=== PATIENT | male | born 1980 | race Caucasian/White ===

== ENCOUNTER 2022-01-22 17:21 | Emergency (ER) | payer OTHER, SELFPAY ==
--- NOTE | ~2022-01-22 | XR_ITS ---
EXAM: XR ankle LT min 3V DATE: 01/22/2022 17:53 HISTORY: pain to left ankle lateral aspect. x2 months . COMPARISON: None available. FINDINGS: Normal mineralization. No fracture or dislocation. No lytic or blastic lesion. Degenerativ e tibiotalar and midfoot changes. No erosion or periosteal change. Soft tissues within normal limits. IMPRESSION: No acute osseous finding in the left ankle. Reviewed, dictated and finalized at location K.
[2022-01-22 17:35] VITALS: BP 159/88; PULSE 79; RESP 16; TEMP 36.3; O2SAT 98
--- NOTE | 2022-01-22 17:55 | ED.LOWEXIN ---
HPI - Extremity Injury (Lower) General Chief Complaint: Extremity Injury, Lower Stated Complaint: injury to left foot and ankle area Time Seen by Provider: 01/22/22 17:35 Source: patient and RN notes reviewed History of Present Illness HPI Narrative: Patient is a 41-year-old male who presents the urgent care with complaints of left ankle pain. Patient states its been intermittent since November when he rolled it playing softball. Denies of taking anything [id number] recently for his pain. No other acute complaints. No acute distress noted. Patient aware of the plan of care. Some parts of this dictation were generated by voice recognition software and may contain typographical and/or grammatical inaccuracies. Related Data Home Medications Medication Instructions Recorded Confirmed cetirizine 10 mg tablet 10 mg PO DAILY 01/22/22 01/22/22 metformin 500 mg tablet,extended 500 mg PO DAILY 01/22/22 01/22/22 release 24 hr omeprazole 20 mg capsule,delayed 20 mg PO DAILY 01/22/22 01/22/22 release Allergies Allergy/AdvReac Type Severity Reaction Status Date / Time No Known Allergies Allergy Verified 01/22/22 17:47 Review of Systems Review of Systems: CONSTITUTIONAL: Denies fever, chills, or sweats. EYES: Denies visual changes, redness, or discharge. ENT: Denies rhinorrhea, congestion, sore throat, or otalgia. CARDIOVASCULAR: Denies chest pain, palpitations, or edema. RESPIRATORY: Denies cough or dyspnea. GASTROINTESTINAL: Denies abdominal pain, nausea, vomiting, or diarrhea. GENITOURINARY: Denies dysuria or hematuria. SKIN: Denies rash or itching. MUSCULOSKELETAL: Reports of left ankle pain NEUROLOGIC: Denies headache, numbness, or weakness. All other systems reviewed are negative, except as documented in HPI. PMFSH Comments At the time of my signature, I reviewed and agree with the nursing past medical, surgical, social, and family history. There is no relevant family history pertinent to the patient complaint. Exam Narrative: GENERAL: This is a well-nourished, well-developed patient, in no apparent distress. HEAD: normocephalic, atraumatic. EYES: PERRL. Sclera clear/white. Vision is grossly intact. EARS: External ears normal NOSE: External nose normal with no obvious nasal discharge, nares without redness, no rhinorrhea. THROAT: Mucous membranes moist NECK: Neck supple SKIN: warm, intact with no suspicious lesions or rash, good texture and turgor. NEURO: awake, alert, and oriented to person, place and time. There were no obvious focal neurologic abnormalities. EXTREMITIES: Positive strong left pedal pulse with capillary refill less than 2 seconds. Range of motion to left lower extremity limited due to pain on rotation/flexion. No obvious edema, ecchymosis or erythema noted to the left lower extremity Course Course Level of Care: Express Care Visit Vital Signs Vital signs: Vital Signs Temperature 97.3 F L 01/22/22 17:35 Pulse Rate 79 01/22/22 17:35 Respiratory Rate 16 01/22/22 17:35 Blood Pressure 159/88 H 01/22/22 17:35 Pulse Oximetry 98 01/22/22 17:35 Oxygen Delivery Room Air 01/22/22 17:35 Temperature 97.3 F L 01/22/22 17:35 Pulse Rate 79 01/22/22 17:35 Respiratory Rate 16 01/22/22 17:35 Blood Pressure 159/88 H 01/22/22 17:35 Pulse Oximetry 98 01/22/22 17:35 Oxygen Delivery Room Air 01/22/22 17:35 Reviewed-patient is informed that they may have pre-hypertension or hypertension based on a blood pressure reading in the department. I recommend the patient call the primary care provider listed on their discharge instructions or a physician of their choice this week to arrange follow-up for further evaluation of possible pre-hypertension or hypertension. MDM - Extremity Injury (Lower) MDM Narrative Medical decision making narrative: Reviewed x-ray results with the patient. He is aware that x-ray was negative for fracture or deformity. Patient is aware that
== END 2022-01-22 18:35 | disposition home or self-care (01) ==
PROVIDERS: Emergency Provider Nurse Practitioner Family; PCP Internal Medicine
DX: S93.402A Sprain of unspecified ligament of left ankle, initial encounter (principal); S96.912A Strain of unspecified muscle and tendon at ankle and foot level, left foot, initial encounter; X50.9XXA Other and unspecified overexertion or strenuous movements or postures, initial encounter; Y93.64 Activity, baseball; K21.9 Gastro-esophageal reflux disease without esophagitis; R73.03 Prediabetes
CPT/HCPCS: 73610; 99213; G0463

== ENCOUNTER 2024-03-01 18:59 | Emergency (ER) | payer OTHER, SELFPAY ==
--- NOTE | 2024-03-01 19:00 | ED.URI ---
HPI - URI/Sore Throat General Chief Complaint: Upper Respiratory Infection Stated Complaint: Cough/Headache/Dizziness Time Seen by Provider: 03/01/24 19:00 Source: patient Mode of arrival: ambulatory Limitations: no limitations History of Present Illness HPI Narrative: Patient is a 43-year-old male who presents with 10 days of cough, congestion, head patient has been taking [id number] medicine with no relief. Reports rest the family have pneumonia. Denies any fever, chills, nausea, vomiting, diarrhea. Related Data Home Medications Medication Instructions Recorded Confirmed cetirizine 10 mg tablet 10 mg PO DAILY 01/22/22 01/22/22 metformin 500 mg tablet,extended 500 mg PO DAILY 01/22/22 01/22/22 release 24 hr omeprazole 20 mg capsule,delayed 20 mg PO DAILY 01/22/22 01/22/22 release semaglutide 0.25 mg or 0.5 mg (2 mg subcut 03/01/24 mg/3 mL) subcutaneous pen injector (Ozempic) Allergies Allergy/AdvReac Type Severity Reaction Status Date / Time No Known Allergies Allergy Verified 01/22/22 17:47 Review of Systems Review of Systems: All systems reviewed & are unremarkable except as noted in HPI and below Constitutional: Constitutional: Denies body ache(s), Denies chills, Denies fatigue, Denies fever(s), Reports headache(s), Denies malaise and Denies weakness Eyes: Eyes: Denies blurry vision, Denies itchy eyes and Denies loss of vision ENT: Denies otalgia, Reports headache(s), Reports nasal congestion, Denies sinus pain and Denies sore throat Cardiovascular: Cardiovascular: Denies chest pain, Denies irregular heart rhythm and Denies dyspnea Respiratory: Respiratory: Reports cough and Denies dyspnea Gastrointestinal: Gastrointestinal: Denies abdominal pain, Denies diarrhea, Denies nausea and Denies vomiting Musculoskeletal: Musculoskeletal: Denies back pain, Denies myalgias and Denies arthralgias Integumentary/Breasts: Skin/Breast: Denies pruritus and Denies rash Neurologic: Denies headache(s), Denies loss of vision and Denies weakness Psychiatric: Psychiatric: Reports no additional psychiatric complaints Endocrine: Endocrine: Denies fatigue Allergic/Immunologic: Allergic/Immunologic: Denies itchy eyes PMFSH Comments At time of signature, agree with nursing past medical, surgical, social and family history. There is no relevant family history pertinent to the presenting complaint. Exam Const: General: cooperative, healthy appearing, comfortable, no acute distress and well nourished Nutritional Appearance: well nourished Orientation/consciousness: patient oriented x3 Limitations: no limitations HENMT: Head: normal to inspection, normocephalic and atraumatic Ears: hearing grossly normal bilaterally, external ears normal, TM's normal bilaterally, EAC's normal and no periauricular adenopathy Face/Nose/Sinus: Normal external nose present, Abnormal mucous membranes and turbinates present erythematous bilateral and diffuse, normal facial exam, sinuses nontender and face symmetric Face and sinus: normal facial exam, sinuses nontender and face symmetric Mouth: Yes Normal oral and palatal mucosa present, Yes lip normal, Yes tongue normal, Yes Normal salivary glands and ducts present, Yes oropharynx normal and Yes moist mucous membranes Teeth and gingiva: dentition normal Throat: posterior oropharynx normal, tonsils normal and uvula midline Eyes: General: appearance normal, both eyes and all related structures Alignment and Position: alignment normal and position normal Periorbital: periorbital findings normal Eyelids: eyelids normal Pupils: Equal, round and reactive pupils present Neck: Neck: normal visual inspection, full ROM, no lymphadenopathy and supple Chest: Chest palpation & inspection: normal inspection of the chest and normal palpation of entire chest wall Resp: Effort & Inspection: normal respiratory effort and able to speak in complete sentences Auscultation: crackles on the righ
[2024-03-01 19:08] VITALS: BP 136/90; PULSE 83; RESP 20; TEMP 36.6; O2SAT 100
== END 2024-03-01 19:50 | disposition home or self-care (01) ==
PROVIDERS: Emergency Provider Nurse Practitioner Family; PCP Internal Medicine
DX: J18.1 Lobar pneumonia, unspecified organism (principal); E11.9 Type 2 diabetes mellitus without complications; Z79.84 Long term (current) use of oral hypoglycemic drugs
CPT/HCPCS: 99213; G0463

== ENCOUNTER 2024-03-09 09:44 | Emergency (ER) | payer OTHER, SELFPAY ==
[2024-03-09 09:54] VITALS: BP 131/94; PULSE 82; RESP 20; TEMP 36.4; O2SAT 100
[2024-03-09 10:03] VITALS: BP 131/94; PULSE 82; RESP 20; TEMP 36.4; O2SAT 100
--- NOTE | 2024-03-09 10:24 | ED_ITS ---
HPI - General Adult General Chief complaint: Upper Respiratory Infection Stated complaint: dizziness, pneumonia Time Seen by Provider: 03/09/24 10:24 Source: patient, RN notes reviewed and old records reviewed Mode of arrival: ambulatory Limitations: no limitations History of Present Illness HPI narrative: 43-year-old male to Express Care with complaint of intermittent dizziness, blurred vision for 3 days. Patient was seen last week and diagnosed with pneumonia. Patient was given Z-Paulo and albuterol inhaler that time. Patient reports completing Z-Paulo and states he stopped using the inhaler once he was fin ished with the Z-Paulo. Patient states he has not seen an tool designer in at least 15 years. Patient does not wear contacts or glasses. Patient resting in exam room in no acute distress. Respirations even and nonlabored. Cough present during exam. Patient able to speak in complete sentences without difficulty. Related Data Home Medications Medication Instructions Recorded Confirmed cetirizine 10 mg tablet 10 mg PO DAILY 01/22/22 03/09/24 metformin 500 mg tablet,extended 1,000 mg PO BID 01/22/22 03/09/24 release 24 hr omeprazole 20 mg capsule,delayed 20 mg PO DAILY 01/22/22 03/09/24 release semaglutide 2 mg/dose (8 mg/3 mL) 2 mg subcut WEEKLY 03/09/24 03/09/24 subcutaneous pen injector (Ozempic) Allergies Allergy/AdvReac Type Severity Reaction Status Date / Time No Known Allergies Allergy Verified 03/09/24 09:50 Review of Systems Review of Systems: All systems reviewed & are unremarkable except as noted in HPI and below Constitutional: Constitutional: Reports no additional constitutional complaints Eyes: Eyes: Reports as per HPI and Reports blurry vision ( Intermittent) ENT: Reports system reviewed and no additional complaints, except as documented Cardiovascular: Cardiovascular: Reports no additional cardiovascular complaints, Denies chest pain and Denies dyspnea Respiratory: Respiratory: Reports no additional respiratory complaints, Reports cough and Denies dyspnea Musculoskeletal: Musculoskeletal: Reports no additional musculoskeletal complaints Neurologic: Reports as per HPI and Reports dizziness Psychiatric: Psychiatric: Reports no additional psychiatric complaints [facility] Comments At the time of my signature, I reviewed and agree with the nursing past medical, surgical, social, and family history. There is no relevant family history pertinent to the patient complaint. Exam Const: General: cooperative, healthy appearing, comfortable, no acute distress, alert and well nourished Nutritional Appearance: well nourished Orientation/consciousness: patient oriented x3 Limitations: no limitations HENMT: Head: normal to inspection Ears: external ears normal and TM abnormal erythematous on the left Face/Nose/Sinus: Normal external nose present, Normal nares present, normal facial exam, No erythema and No edema Face and sinus: normal facial exam, no erythema and no edema Mouth: Yes Normal oral and palatal mucosa present Throat: posterior oropharynx abnormal erythema and postnasal drainage Eyes: General: appearance normal, both eyes and all related structures Neck: Neck: normal visual inspection, full ROM and no meningeal signs Lymphatic: no lymphadenopathy noted and no lymphedema noted Chest: Chest palpation & inspection: normal inspection of the chest Resp: Effort & Inspection: normal respiratory effort and able to speak in complete sentences Auscultation: crackles on the right in the mid lung mary and in the lower lung mary Cardio: Jugular venous distension: no JVD Rate: regular rate Rhythm: regular rhythm Back/Spine/Pelvis: Cervical Spine: cervical ROM normal Skin: General skin exam: normal color, no rashes or lesions noted and turgor normal Neuro: General: patient oriented x3, gait normal, moves all extremities and no meningeal signs Speech: normal speech Gait exam (Neuro): Normal gait present Extrem: General: normal to inspection, full ROM and capillary refill normal Psych: Appearance: grossly normal and well kempt Course Course Emergency Course: Some parts of this dictation were generated by voice recognition software and may contain typographical and/or grammatical inaccuracies. Level of Care: Express Care Visit Vital Signs Vital signs: Vital Signs Temperature 36.4 C 03/09/24 09:54 Pulse Rate 82 03/09/24 09:54 Respiratory Rate 20 03/09/24 09:54 Blood Pressure 131/94 H 03/09/24 09:54 Pulse Oximetry 100 03/09/24 09:54 Oxygen Delivery Room Air 03/09/24 09:54 Temperature 36.4 C 03/09/24 10:03 Pulse Rate 82 03/09/24 10:03 Respiratory Rate 20 03/09/24 10:03 Blood Pressure 131/94 H 03/09/24 10:03 Pulse Oximetry 100 03/09/24 10:03 Oxygen Delivery Room Air 03/09/24 10:03 reviewed Medical Decision Making MDM Narrative Medical decision making narrative: 43-year-old male to Express Care with complaint of intermittent dizziness, blurred vision for 3 days. Patient was seen last week and diagnosed with pneumonia. Patient was given Z-Paulo and albuterol inhaler that time. Patient reports completing Z-Paulo and states he stopped using the inhaler once he was finished with the Z-Paulo. Patient states he has not seen an tool designer in at least 15 years. Patient does not wear contacts or glasses. Patient resting in exam room in no acute distress. Respirations even and nonlabored. Cough pre sent during exam. Patient able to speak in complete sentences without difficulty. Patient is sitting comfortably in exam room nontoxic in appearance. on auscultation, right mid and right lower crackles. Unresolved pneumonia. Patient appropriate for outpatient treatment and follow-up. Discharge instructions reviewed with patient, as well as provided in writing per nursing staff. The instructions also include specific and strict return/GO TO THE ER as well as f/u information. All questions have been answered, and the patient deny any further questions with discharge and discharge plan. Some parts of this dictation were generated by voice recognition software and may contain typographical and/or grammatical inaccuracies. Differential Diagnosis Differential Diagnosis: Pneumonia, dizziness, blurred vision, TIA Vital Signs Vital Signs: Vital Signs Temperature 36.4 C 03/09/24 09:54 Pulse Rate 82 03/09/24 09:54 Respiratory Rate 20 03/09/24 09:54 Blood Pressure 131/94 H 03/09/24 09:54 Pulse Oximetry 100 03/09/24 09:54 Oxygen Delivery Room Air 03/09/24 09:54 Temperature 36.4 C 03/09/24 10:03 Pulse Rate 82 03/09/24 10:03 Respiratory Rate 20 03/09/24 10:03 Blood Pressure 131/94 H 03/09/24 10:03 Pulse Oximetry 100 03/09/24 10:03 Oxygen Delivery Room Air 03/09/24 10:03 Discharge Plan Discharge Clinical Impression: Pneumonia involving right lung Patient Disposition: Home, Self-Care Condition: Stable Instructions: Pneumonia (ED) Additional Instructions: your symptoms are due to unresolved pneumonia. Please take entire course of antibiotic treatment and continue using albuterol inhaler as needed. Take steroid as directed in the morning please schedule an appointment with an tool designer at your earliest opportunity -Alternate Tylenol and Motrin per package directions for fever or pain. -Antihistamine medication such as Benadryl at night and Zyrtec/Claritin/Layla during the day can help improve symptoms. -Use Flonase twice a day for 5 days then daily to help reduce the inflammation and dry up your sinuses. -You can also use Sudafed or Mucinex. Be sure to drink plenty of water with these medications at least 8 ounces with every dose and it is important to drink 8 to 10 glasses of water per day. Water is a natural decongestant -Eat and drink things that are easy to swallow, like tea or soup, or popsicles. -Oral rinses such as: Salt water gargles and/or may use topical anesthetic (eg. Chloraseptic spray) or lozenges to relieve dryness or throat pain). -Frequent hand washing or hand program coordinator executive education is one of the best ways to prevent spread of infection. -Using a vaporizer or humidifier at night will also help thin secretions and help with coughing up phlegm. -Follow up with primary care provider in 2-3 days if condition is not improving; or seek ER visit if you have trouble breathing, cannot drink enough fluids, have muffled voice, difficulty opening your mouth, or severe swelling. Prescriptions: New prednisone 20 mg tablet See Rx Instructions .ROUTE .COMPLEX Qty: 9 0RF Rx Instructions: Take 40mg x3 days, 20mg x3 days amoxicillin 500 mg capsule 1,000 mg PO Q8H 5 Days Qty: 30 0RF No Action metformin 500 mg tablet extended release 24 hr 1,000 mg PO BID omeprazole 20 mg capsule,delayed release(DR/EC) 20 mg PO DAILY cetirizine 10 mg tablet 10 mg PO DAILY albuterol sulfate 90 mcg/actuation HFA aerosol inhaler 2 puff inhalation QID PRN (Reason: shortness of breath or wheezing) Qty: 6.7 0RF (DME) Aerochamber MV Spacer See Rx Instructions .Route Qty: 1 0RF Rx Instructions: As directed Ozempic 2 mg/dose (8 mg/3 mL) pen injector 2 mg SUBCUT WEEKLY Follow-up/Referrals: Satya,Joseph Key MD [Primary Care Provider] -
== END 2024-03-09 10:45 | disposition home or self-care (01) ==
PROVIDERS: Emergency Provider Nurse Practitioner Family; PCP Internal Medicine
DX: J18.9 Pneumonia, unspecified organism (principal); K21.9 Gastro-esophageal reflux disease without esophagitis; R73.03 Prediabetes
CPT/HCPCS: 99213; G0463

== ENCOUNTER 2024-06-02 16:50 | Emergency (ER) | payer OTHER, SELFPAY ==
--- NOTE | ~2024-06-02 | XR_ITS ---
CHEST RADIOGRAPH, PA AND LATERAL CLINICAL HISTORY: cough, HX PNEUMONIA . COMPARISON: None available TECHNIQUE: PA and lateral views of the chest. FINDINGS The cardiomediastinal silhouette is unremarkable. The lungs are clear. Visualized osseous structures and soft tissues are unremarkable. IMPRESSION: No focal infiltrate or effusion. Reviewed, dictated and finalized at location A. KERER HAND
[2024-06-02 16:55] VITALS: BP 124/87; PULSE 73; RESP 16; TEMP 36.1; O2SAT 98
--- NOTE | 2024-06-02 18:11 | ED.GENADULT ---
HPI - General Adult General Chief complaint: Upper Respiratory Infection Stated complaint: Chest Congestion/Cough Source: patient Mode of arrival: ambulatory Limitations: no limitations History of Present Illness HPI narrative: Patient presents for evaluation recurrent respiratory symptoms. He indicates he had pneumonia twice at the end of 2023. The first time he was treated with azithromycin. The second time he was treated with azithromycin when he believes to be amoxicillin. He had improvement in his symptoms. Last week he had some upper respiratory symptoms and yesterday felt like his infection was moving into the right side of his chest. He has intermittent shortness of breath but reports productive cough of green sputum. He denies any fever, chills, nausea, vomiting. He recently visited hospital twice for different family members but has not been hospitalized himself. He has been unable to get an appt with his PCP. He does not smoke or vape. Related Data Home Medications ?Medication ?Instructions ?Recorded ?Confirmed ?Last Taken ?Type cetirizine 10 mg tablet 10 mg PO DAILY 01/22/22 06/02/24 Unknown History metformin 500 mg tablet,extended 1,000 mg PO BID 01/22/22 06/02/24 Unknown History release 24 hr omeprazole 20 mg capsule,delayed 20 mg PO DAILY 01/22/22 06/02/24 Unknown History release semaglutide 2 mg/dose (8 mg/3 mL) 2 mg subcut WEEKLY 03/09/24 06/02/24 Unknown History subcutaneous pen injector (Ozempic) Vitamin D (with calcium) 06/02/24 Unknown History centrum mens 06/02/24 Unknown History empagliflozin 25 mg tablet mg 06/02/24 Unknown History (Jardiance) metformin 500 mg tablet mg 06/02/24 Unknown History Allergies Allergy/AdvReac Type Severity Reaction Status Date / Time No Known Allergies Allergy Verified 06/02/24 16:52 Review of Systems Review of Systems: CONSTITUTIONAL: Denies fever, chills, or sweats. EYES: Denies visual changes, redness, or discharge. ENT: Denies rhinorrhea, congestion, sore throat, or otalgia. CARDIOVASCULAR: Denies chest pain, palpitations, or edema. RESPIRATORY: Reports productive cough of green sputum and intermittent shortness of breath GASTROINTESTINAL: Denies abdominal pain, nausea, vomiting, or diarrhea. GENITOURINARY: Denies dysuria or hematuria. SKIN: Denies rash or itching. MUSCULOSKELETAL: Denies back pain, joint pain, or myalgia. NEUROLOGIC: Denies headache, numbness, dizziness, or weakness. PSYCHIATRIC: Denies anxiety or depression. [facility] Past Medical History Medical History Diabetes Surgical History Surgical History No pertinent past surgical history Family History Family History Mother Family history non-contributory Other Heart disease Social History Social History Smoking status: Never smoker Substance use: never Living arrangements: with family Gender identity (if verbalized by the patient): Male Sexual Orientation (if Verbalized by the Patient): Straight or Heterosexual Spiritual care concerns: No Exam Narrative: GENERAL: Well-appearing, well-nourished, and in no acute distress. HEAD: Normocephalic, atraumatic. EYES: PERRLA and EOMI. ENT: Nares clear, no rhinorrhea or epistaxis. Mucous membranes moist. Oropharynx without tonsillar hypertrophy exudate or other lesions. Bilateral TMs pearly mckinley nonbulging NECK: Supple. No adenopathy or masses. No carotid bruits or JVD CHEST: Rales in RLL. No respiratory distress. No wheezes rales or rhonchi HEART: Regular rate and rhythm. No murmur heard. Normal peripheral pulses. ABDOMEN: Soft, nontender, nondistended, normal active bowel sounds. EXTREMITIES: Normal range of motion. No edema. SKIN: Warm, dry, no rash. NEURO: No focal deficits. Alert and oriented x3. PSYCH: Normal mood and affect. Course Course Emergency Course: This is a 43-year-old male who presented for evaluation of cough with recurrent pneumonia. Chest x-ray today read as normal. Clinically I am concerned he may have pneumonia. Through shared decision making opted to proceed with antibiotic therapy as his current symptoms are consistent with those he previously experience with pneumonia. Will treat with Augmentin and doxycycline. Increase hydration. Jacb-eze-fomncke agents for symptom management. Follow up with primary provider. Go to the ER for worsening symptoms. Patient in agreement with plan of care. Level of Care: Express Care Visit Vital Signs Vital signs: Vital Signs Temperature 36.1 C L 06/02/24 16:55 Pulse Rate 73 06/02/24 16:55 Respiratory Rate 16 06/02/24 16:55 Blood Pressure 124/87 06/02/24 16:55 Pulse Oximetry 98 06/02/24 16:55 Oxygen Delivery Room Air 06/02/24 16:55 Temperature 36.1 C L 06/02/24 16:55 Pulse Rate 73 06/02/24 16:55 Respiratory Rate 16 06/02/24 16:55 Blood Pressure 124/87 06/02/24 16:55 Pulse Oximetry 98 06/02/24 16:55 Oxygen Delivery Room Air 06/02/24 16:55 Medical Decision Making Vital Signs Vital Signs: Vital Signs Temperature 36.1 C L 06/02/24 16:55 Pulse Rate 73 06/02/24 16:55 Respiratory Rate 16 06/02/24 16:55 Blood Pressure 124/87 06/02/24 16:55 Pulse Oximetry 98 06/02/24 16:55 Oxygen Delivery Room Air 06/02/24 16:55 Temperature 36.1 C L 06/02/24 16:55 Pulse Rate 73 06/02/24 16:55 Respiratory Rate 16 06/02/24 16:55 Blood Pressure 124/87 06/02/24 16:55 Pulse Oximetry 98 06/02/24 16:55 Oxygen Delivery Room Air 06/02/24 16:55 Imaging Data Radiologist's impression: CHEST RADIOGRAPH, PA AND LATERAL CLINICAL HISTORY: cough, HX PNEUMONIA . COMPARISON: None available TECHNIQUE: PA and lateral views of the chest. FINDINGS The cardiomediastinal silhouette is unremarkable. The lungs are clear. Visualized osseous structures and soft tissues are unremarkable. IMPRESSION: No focal infiltrate or effusion Discharge Plan Discharge Clinical Impression: At high risk for pneumonia Patient Disposition: Home, Self-Care Condition: Stable Instructions: Antibiotic Form, Community Acquired Pneumonia (ED) Patient Language: Syriac Prescriptions: New amoxicillin-pot clavulanate 875-125 mg tablet 1 tablet PO Q12H Qty: 20 0RF doxycycline hyclate 100 mg capsule 100 mg PO BID 10 Days Qty: 20 0RF No Action metformin 500 mg tablet extended release 24 hr 1,000 mg PO BID omeprazole 20 mg capsule,delayed release(DR/EC) 20 mg PO DAILY cetirizine 10 mg tablet 10 mg PO DAILY albuterol sulfate 90 mcg/actuation HFA aerosol inhaler 2 puff inhalation QID PRN (Reason: shortness of breath or wheezing) Qty: 6.7 0RF (DME) Aerochamber MV Spacer See Rx Instructions .Route Qty: 1 0RF Rx Instructions: As directed metformin 500 mg tablet Jardiance 25 mg tablet Vitamin D (with calcium) centrum mens Ozempic 2 mg/dose (8 mg/3 mL) pen injector 2 mg SUBCUT WEEKLY Follow-up/Referrals: Satya,Joseph Key MD [Primary Care Provider] - Time of Disposition: 18:18
--- OUTSIDE RECORDS SUMMARY | 2024-06-04 03:21 | XMS_ITS | Clinical Summary ---
Author Organization [facility] Address [address] [place] [address] Care Team Providers Care Cook At School Name Role Phone Unavailable Primary Care Provider Unavailabl e Source Comments [facility],non-owned Affiliates and Associated Physician Practices is amultiple site organization consisting of ambulatory clinics and hospital sitesin [place], [place], [place] and [place]. This disclosure is being madepursuant to the Care Everywhere program and may not contain all information available regarding this patient. Last updated 18.[facility] [employer] Social History Tobacco Use Types Packs/Day Years Used Date Smoking Tobacco: Never Assessed Sex and Gender Information Value Date Recorded Sex Assigned at Not on file Gender Identity Not on file Sexual Orientation Not on file Plan of Treatment Health Maintenance Due Date Last Done Comments LIPID TESTING 1981 HIV SCREENING 1996 HEPATITIS C SCREENING 12/07/1999 DTAP/TDAP/TD VACCINES (1 - Tdap) 2000 HEPATITIS B VACCINE (1 of 3 - 19+ 3-dose series) 2000 COVID-19 VACCINE (2023-2 5 season) 2024 INFLUENZA VACCINE (#1) 2024 DEPRESSION SCREENING 05/12/2024 ZOSTER VACCINE (1 of 2) 12/12/2031 HIB VACCINE Aged Out No longer eligi ble based on patient's age to complete this topic HPV VACCINE Aged Out No longer eligi ble based on patient's age to complete this topic MENINGOCOCCAL (Group B) VACCINE Aged Out No longer eligible based on patient's age to complete this topic MENINGOCOCCAL VACCINE Aged Out No umm mann eligible based on patient's age to complete this topic PNEUMOCOCCAL VACCINE Aged Out No long er eligible based on patient's [place] [address]
--- OUTSIDE RECORDS SUMMARY | 2024-06-04 03:22 | XMS_ITS | Encounter Summary ---
Author Organization [facility] Address [address] [address] Care Team Providers Care Claim Administrator Name Role Phone Unavailable Primary Care Provider Unavailabl e Encounter Details Date Type Department Care Team (Late st Contact Info) Description 11/18/2023 Lab Requisition [facility] - DermPath Lab [address] [place] [address] Mercedes Romero MD [address] [place] [address] Social History Tobacco Use Types Packs/Day Years Used Date Smoking Tobacco: Never Assessed Sex and Gender Information Value Date Recorded Sex Assigned at Not on file Gender Identity Not on file Sexual Orientation Not on file documented as of this encounter Plan of Treatment Not on file documented as of this encounter Procedures Procedure Name Priority Date/Time Associated Diagnosis Comments DERMATOPATHOLOGY Routine 11/18/2023 2:53 PM CDT documented in this encounter Results * DERMATOPATHOLOGY (11/18/2023 2:53 PM CDT) Case Report Dermatopathology Report ? Case: [id number] ? Authorizing Provider: ??Mercedes Romero MD ? Collected: ? 11/18/2023 02:53 PM ? Ordering Location: ? [facility] - ??Received: ?11/20/2023 07:00 AM ? DermPath Lab ? Pathologist: ? Magdalene Kamara MD ? Specimen: ?Skin, right forehead ? 4 4:20 PM T DERMATOPATHOLOGY LABORATORY Final Diagnosis Specimen A. SKIN, right forehead: SEBORRHEIC KERATOSIS (L82.1) 4 4:20 PM [facility] DERMATOPATHOLOGY LABORATORY Clinical History AF vs Nevus r/o atypia 4 4:20 PM [facility] DERMATOPATHOLOGY LABORATORY Gross Description Specimen A: Received is one formalin filled container labeled with the patient's name and designated right forehead. The specimen consists of a shave biopsy measuring 8x6x2 mm. Jar 0. 4 4:20 PM CDT DERMATOPATHOLOGY LABORATORY Microscopic Description Specimen A. SKIN, right forehead: Sections show an acanthotic lesion composed of relatively uniform keratinocytes. There is hyperkeratosis and pseudo horn cysts formation. 4 4:20 PM [facility] DERMATOPATHOLOGY LABORATORY Disclaimer An external and internal positive and negative controls are appropriate for the histochemical, immunohistochemical and immunofluorescence stain(s) in this case (if any), except where stated explicitly. The performance characteristics of the stain(s) cited in this report were developed and its performance characteristic determined by the Dermatopathology Laboratory at [facility], directed by Dr. Holly Obregon. These tests need not be, and therefore are not, approved by the [place] Food and Drug Administration. The tests are used for clinical purposes. Billing Codes Specimen Charges Stain Charges 08498 1 4 4:20 PM CDT DERMATOPATHOLOGY LABORATORY Embedded Images 4 4:20 PM CDT DERMATOPATHOLOGY LABORATORY Pathology/Cytolo gy TISSUE SPECIMEN FROM SKIN / Unknown 11/18/2023 2:53 PM CDT 11/20/2023 7:00 AM CDT Mercedes Romero MD LAB - PATHOLOGY/CYT OLOGY ORDERABLES DERMATOPATHOLOGY LABORATORY [facility] - Department of Dermatology [facility] Specialized Medicine [address] [place] [address], [address] [phone] documented in this encounter Visit Diagnoses Not on filedocumented in this encounter
--- OUTSIDE RECORDS SUMMARY | 2024-06-04 03:22 | XMS_ITS | Clinical Summary ---
Author Organization [facility] Address [address] [place] [address] Care Team Providers Care Refrigeration Brazer/Solderer Name Role Phone Homer Hernadez MD Primary Care Provider + Homer Hernadez MD Unavailable [phone] Allergies No known active allergies Medications omeprazole (PriLOSEC) 10 mg capsule Take 2 capsules (20 mg total) by mouth daily Active calcium carbonate (TUMS) 500 mg (200 mg elemental) chewable tablet Take 1 tablet/chew tab (500 mg total) by mouth daily Active cetirizine (ZyrTEC) 10 mg chewable tablet Take 1 tablet (10 mg total) by mouth daily Active mometasone (NASONEX) 50 mcg/actuation nasal spray Administer 2 sprays into each nostril daily Active metFORMIN XR (GLUCOPHAGE XR) 500 mg 24 hr tablet Take 1 tablet (500 mg total) by mouth 2 (two) times a day 2 Active semaglutide (RYBELSUS) 7 mg tablet Take 1 tablet (7 mg total) by mouth daily Active Active Problems Problem Noted Date Diagnosed Date Prediabetes 05/02/2022 Gastroesophageal reflux disease 02/12/2022 Overview (02/12/2022): Added automatically from request for surgery [id number] Vitamin D deficiency 09/25/2013 Overview (08/14/2016): VITAMIN D DEFICIENCY NOS 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 Overview (08/15/2016): PHENYLKETONURIA - PKU Classical phenylketonuria 12/27/2009 Immunizations Name Administration Dates Next Due Influenza, Unspecified 04/09/2022 Meningococcal Polysaccharide (Menomune) 05/12/19 Moderna SARS-CoV-2 Monovalent Vaccination (12+ Y RS) 07/07/2020 Moderna Sars-cov-2 Bivalent Vaccine 50 Mcg/0.5 mL (12+ YRS)-Blue/Olson 04/12/2021 Moderna Sars-cov-2 Monovalent Vaccination (6 Mos -5 Yrs) 08/01/2020 Surgical History Surgery Date Site/Laterality Comments OTHER SURGICAL HISTORY PKU: diet SINUS ENDOSCOPY Medical History Medical History Date Comments Hx Other Medical PKU Hx Other Medical 2003 L RCT (no surg) Hx Other Medical Hx Other Medical 11/2008 ER visit for ey e laceration GERD (gastroesophageal reflux disease) Family History Medical History Relation Name Comments Lung cancer Maternal Grandfather Cancer -lung; Dementia Maternal Grandmother Dementi a; Relation Name Status Comments Maternal Grandfather Maternal Grandmother Social History Tobacco Use Types Packs/Day Years Used Date Smoking Tobacco: Never Smokeless Tobacco: Never Tobacco Cessation:Counseling Given: Not Answered Alcohol Use Standard Drinks/Week Comments Yes 0 (1 standard drink = 0.6 oz pur e alcohol) Sex and Gender Information Value Date Recorded Sex Assigned at Not on file Legal Sex Male 8:33 PM TEACHER HOME THERAPY Gender Identity Not on file Sexual Orientation Not on file Obstetrics History Last Filed Vital Signs Vital Sign Reading Time Taken Comments Blood Pressure 118/82 06/05/2023 9:47 AM TEACHER HOME THER[employer]Y Pulse 82 06/05/2023 9:47 AM TEACHER HOME THER[employer]Y Temperature 36.6 ??C (97.8 ??F) 06/05/2023 9:47 AM CS T Respiratory Rate 16 06/10/2022 10:06 AM TEACHER HOME THERAPY Oxygen Saturation 96% 06/05/2023 9:47 AM TEACHER HOME THERAPY Inhaled Oxygen Concentration - - Weight 87.8 kg (193 lb 9 oz) 06/05/2023 9:47 AM TE[employer]ER HOME THER[employer]Y Height 175.3 cm (5' 9 ) 06/05/2023 9:47 AM TEACHER HOME THERAPY Body Mass Index 28.58 06/05/2023 9:47 AM TEACHER HOME THERAPY Plan of Treatment Health Maintenance Due Date Last Done Comments Depression Screening 1981 Hepatitis C Screening 1981 DTaP/Tdap/Td Vaccine (1 - Tdap) 1992 Varicella Vaccines (1 of 2 - 13+ 2-dose series) 1994 Hepatitis B Screening 12/12/1999 Regular Well Visit/Exam 18-64 12/12/1999 Covid-19 Vaccine (3 - 2023-2 5 season) 2024 04/12/2021, 08/01/2020, 07/07/2020 Influenza Vaccine (#1) 2024 04/09/2022 HPV Vaccines Aged Out No longer eligi ble based on patient's age to complete this topic Pneumococcal vaccine <65 Aged Out No longer eligible based on patient's age to complete this topic Insurance [facility] CIGNA [facility] CIGNA [facility] [place] [address] Advance Directives For more information, please contact: [phone] * Full Code (Latest Code Status on File) Date Activated Date Inactivated Comments 04/09/2022 9:35 AM 04/09/2022 3:53 PM * Full Code Date Activated Date Inactivated Comments 04/09/2022 9:35 AM 04/09/2022 9:35 AM Care Teams Refrigeration Brazer/Solderer Relationship Specialty Start Date End Date Homer Hernadez MD [address] [place] [address] PCP - General Internal Medicine 07/10/21 Homer Hernadez MD [address] [place] [address] 06/21/21
--- OUTSIDE RECORDS SUMMARY | 2024-06-04 03:22 | XMS_ITS | Referral Summary ---
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 Overview (08/15/2016): PHENYLKETONURIA - PKU Classical phenylketonuria 12/27/2009 Immunizations Name Administration Dates Next Due Influenza, Unspecified 04/09/2022 Meningococcal Polysaccharide (Menomune) 05/12/19 Moderna SARS-CoV-2 Monovalent Vaccination (12+ Y RS) 07/07/2020 Moderna Sars-cov-2 Bivalent Vaccine 50 Mcg/0.5 mL (12+ YRS)-Blue/Olson 04/12/2021 Moderna Sars-cov-2 Monovalent Vaccination (6 Mos -5 Yrs) 08/01/2020 Social History Tobacco Use Types Packs/Day Years Used Date Smoking Tobacco: Never Smokeless Tobacco: Never Tobacco Cessation:Counseling Given: Not Answered Alcohol Use Standard Drinks/Week Comments Yes 0 (1 standard drink = 0.6 oz pur e alcohol) Sex and Gender Information Value Date Recorded Sex Assigned at Not on file Legal Sex Male 8:33 PM SENSITIZED PAPER TESTER Gender Identity Not on file Sexual Orientation Not on file Last Filed Vital Signs Vital Sign Reading Time Taken Comments Blood Pressure 118/82 06/05/2023 9:47 AM SENSITIZED PAPER TESTER Pulse 82 06/05/2023 9:47 AM SENSITIZED PAPER TESTER Temperature 36.6 ??C (97.8 ??F) 06/05/2023 9:47 AM CS T Respiratory Rate 16 06/10/2022 10:06 AM SENSITIZED PAPER TESTER Oxygen Saturation 96% 06/05/2023 9:47 AM SENSITIZED PAPER TESTER Inhaled Oxygen Concentration - - Weight 87.8 kg (193 lb 9 oz) 06/05/2023 9:47 AM SENSITIZED PAPER TESTER Height 175.3 cm (5' 9 ) 06/05/2023 9:47 AM SENSITIZED PAPER TESTER Body Mass Index 28.58 06/05/2023 9:47 AM SENSITIZED PAPER TESTER Plan of Treatment [place] [address] [facility] [place] [address] [facility] CIGNA [facility] CIG Advance Directives For more information, please contact: [phone] * Full Code (Latest Code Status on File) Date Activated Date Inactivated Comments 04/09/2022 9:35 AM 04/09/2022 3:53 PM * Full Code Date Activated Date Inactivated Comments 04/09/2022 9:35 AM 04/09/2022 9:35 AM Care Teams Carbon Sequestration Plant Manager Relationship Specialty Start Date End Date Homer Hernadez MD [address] [facility] [place] [place] [id number] PCP - General Internal Medicine 07/10/21 Homer Hernadez MD [address] [facility] [address] [place] [id number] 06/21/21
--- OUTSIDE RECORDS SUMMARY | 2024-06-04 03:22 | XMS_ITS | Patient Health Summary ---
Author Organization [facility] Address [address] [place] [address] Care Team Providers Care Cash Specialist Name Role Phone Unavailable Primary Care Provider Unavailabl e Note from [facility],non-owned Affiliates and Associated Physician Practices is amultiple site organization consisting of ambulatory clinics and hospital sitesin [place], [place], [place] and [place]. This disclosure is being madepursuant to the Care Everywhere program and may not contain all information available regarding this patient. Last updated 18.[facility] Social History Tobacco Use Types Packs/Day Years Used Date Smoking Tobacco: Never Assessed Sex and Gender Information Value Date Recorded Sex Assigned at Not on file Gender Identity Not on file Sexual Orientation Not on file Procedures * DERMATOPATHOLOGY(Performed 11/18/2023) Results * DERMATOPATHOLOGY (11/18/2023 2:53 PM CDT) Case Report Dermatopathology Report ? Case: [id number] ? Authorizing Provider: ??Mercedes Romero MD ? Collected: ? 11/18/2023 02:53 PM ? Ordering Location: ? [facility] - ??Received: ?11/20/2023 07:00 AM ? DermPath Lab ? Pathologist: ? Magdalene Kamara MD ? Specimen: ?Skin, right forehead ? 4 4:20 PM CDT DERMATOPATHOLOGY LABORATORY Final Diagnosis Specimen A. SKIN, right forehead: SEBORRHEIC KERATOSIS (L82.1) 4 4:20 PM CDT DERMATOPATHOLOGY LABORATORY Clinical History AF vs Nevus r/o atypia 4 4:20 PM CDT DERMATOPATHOLOGY LABORATORY Gross Description Specimen A: Received [...] pseudo horn cysts formation. 4 4:20 PM CDT DERMATOPATHOLOGY LABORATORY Disclaimer An external and internal positive and negative controls are appropriate for the histochemical, immunohistochemical and immunofluorescence stain(s) in this case (if any), except where stated explicitly. The performance characteristics of the stain(s) cited in this report were developed and its performance characteristic determined by the Dermatopathology Laboratory at [facility], directed by Dr. Holly Obregon. These tests need not be, and therefore are not, approved by the [place] Food and Drug Administration. The tests are used for clinical purposes. Billing Codes Specimen Charges Stain Charges 74966 1 4 4:20 PM CDT DERMATOPATHOLOGY LABORATORY Embedded Images 4 4:20 PM CDT DERMATOPATHOLOGY LABORATORY Pathology/Cytolo gy TISSUE SPECIMEN FROM SKIN / Unknown 11/18/2023 2:53 PM CDT 11/20/2023 7:00 AM CDT Mercedes Romero MD LAB - PATHOLOGY/CYT OLOGY ORDERABLES DERMATOPATHOLOGY LABORATORY [facility] - Department of Dermatology [facility] Specialized Medicine [address] [place] [address], [address] [phone]
--- OUTSIDE RECORDS SUMMARY | 2024-06-04 03:22 | XMS_ITS | Referral Summary ---
Author Organization [facility] Address [address] [place] [address] Care Team Providers Care Cellophane Casting Machine Repairer Name Role Phone Unavailable Primary Care Provider Unavailabl e Source Comments [facility],non-owned Affiliates and Associated Physician Practices is amultiple site organization consisting of ambulatory clinics and hospital sitesin [place], [place], [place] and [place]. This disclosure is being madepursuant to the Care Everywhere program and may not contain all information available regarding this patient. Last updated 18.[facility] Social History Tobacco Use Types Packs/Day Years Used Date Smoking Tobacco: Never Assessed Sex and Gender Information Value Date Recorded Sex Assigned at Not on file Gender Identity Not on file Sexual Orientation Not on file Plan of Treatment Not on file
== END 2024-06-02 18:22 | disposition home or self-care (01) ==
PROVIDERS: Emergency Provider Nurse Practitioner; PCP Internal Medicine
DX: R05.9 Cough, unspecified (principal); Z87.01 Personal history of pneumonia (recurrent); E11.9 Type 2 diabetes mellitus without complications
CPT/HCPCS: 71046; 99213; G0463

== ENCOUNTER 2024-06-17 08:32 | Outpatient (CLI) | payer OTHER, SELFPAY ==
--- NOTE | ~2024-06-17 | CT_ITS ---
CT Scan of the Chest without Contrast: Clinical Indication: Pneumonia Technique: Contiguous sections were acquired throughout the chest without intravenous contrast. Dose reduction technique was used on this scan by utilizing automated exposure control and iterative recon struction technique. The dose-length product (DLP) was 293.53 mGy-cm. Findings: There is no evidence of any significant mediastinal, hilar or axillary lymphadenopathy. Aberrant righ t subclavian artery noted. The mediastinal soft tissues otherwise appear normal. There is no evidence of pleural or pericardial effusion. The lungs are clear, aside from calcified left lower lobe granuloma. Images through the upper abdomen reveal no abnormalities. Impression: No significant abnormalities seen. Reviewed, dictated and finalized at location . DRY TECHNICIAN Impression: No significant abnormalities seen.
== END 2024-06-17 08:33 | disposition home or self-care (01) ==
PROVIDERS: PCP Internal Medicine; Visit Provider Internal Medicine
DX: J15.9 Unspecified bacterial pneumonia (principal)
CPT/HCPCS: 71250